=== PATIENT | female | born 1980 | race Caucasian/White ===

== ENCOUNTER 2018-06-03 15:41 | Inpatient (IN) | payer OTHER ==
[~2018-06-03 15:41] MED LIST: Bupivacaine/Epinephrine 0.25% 30 ML VIAL ONE
[2018-06-03] MEDS ORDERED: NS / Oxytocin 40 units/1000ml 1,000 ML IV PRN (18:04)
[2018-06-03] MEDS ORDERED: Zolpidem Tartrate 5 MG TAB PO PRN (18:04)
[2018-06-03] MEDS ORDERED: Butorphanol Tartrate 1 MG/ML VIAL SLOW IVP PRN (18:04)
[2018-06-03] MEDS ORDERED: Lidocaine 1% (PF) 30 ML VIAL SC PRN (18:04)
[2018-06-03] MEDS ORDERED: Carboprost 250 MCG/ML AMP IM PRN (18:04)
[2018-06-03] MEDS ORDERED: Misoprostol 200 MCG TAB PR PRN (18:04)
[2018-06-03] MEDS ORDERED: HYDROcodone/Acetaminophen 5/325 mg Tablet PO PRN ×2 (18:04)
[2018-06-03] MEDS ORDERED: Promethazine HCl 25 MG/ML VIAL IM PRN (18:04)
[2018-06-03] MEDS ORDERED: Acetaminophen 500 MG TAB PO PRN (18:04)
[2018-06-03] MEDS ORDERED: Diphenoxylate HCl/Atropine Tablet PO PRN (18:04)
[2018-06-03 18:11] VITALS: BMI 38.0
[2018-06-03] MEDS ORDERED: Penicillin G Potassium 5 MILL.UNITS in Sodium Chloride 0.9% 100 ML IVPB SCH (18:15)
[2018-06-03] MEDS ORDERED: [UNRECOGNIZED DRUG - OTHER] VAG SCH (18:15)
--- NOTE | 2018-06-03 18:16 | PDOC.LDHP ---
Labor and Delivery H&P Chief complaint: other (BPP 4/8 and oligo in office on BPP today) HPI: 38yo at 37w3d by LMP sent over for IOL due to oligo and BPP 4/8. Pt endorses +fm. Hx CHTN no meds currently prev on losartan, no sx PIH. Current gestational age (weeks): 37 Due date: 06/21/18 Dating criteria: second trimester ultrasound Grav: 1 Para: 0 Current complications: none Abnormal US findings: No Past Medical History: CHTN Current medications: pre- vitamins, iron, other (asa 81mg) Previous surgical history: none Allergies/Adverse Reactions: Allergies Allergy/AdvReac Type Severity Reaction Status Date / Time celecoxib [From Celebrex] Allergy Verified 06/03/18 18:03 Social history: none - Physical Exam Vital signs reviewed and normal: yes General: NAD Heart: RRR Lungs: CTAB Abdomen: gravid Extremeties: no edema FHT: category 1 [place] contractions every: quiet - Vaginal Exam cm dilated: 0 Effacement: 25% Station: -2 - OB Labs Blood type: A RH: positive Antibody Screen: negative HIV: negative RPR: negative HEPSAg: negative 1 hour GCT: negative GBS: positive Urine drug screen: not done Rubella: immune - Assessment L&D Assessment: medically indicated induction - Plan Plan: admit to L&D, cervical ripening, labor augmentation if indicated, GBS antibiotic prophylaxis, informed consent obtained, anesthesia consult for pain management
[2018-06-03] MEDS ORDERED: Dinoprostone 10 MG Suppository VAG SCH (18:30)
[2018-06-03 19:02] LABS: Hemoglobin 11.9 g/dL (12.0-16.0); Mean Corpuscular HGB CONC 34.9 g/dL (32.0-36.0); Mean Corpuscular Hemoglobin 31.5 pg (27.0-31.0); Mean Corpuscular Volume 90.3 fL (78.0-98.0); Mean Platelet Volume 7.9 fL (7.4-10.4); Platelet Count 214 thou/uL (130-400); RBC Distribution Width 13.2 % (11.5-14.5); Red Blood Cell (RBC) Count 3.78 mill/uL (4.20-5.40); White Blood Cell (WBC) Count 11.1 thou/uL (4.8-10.8)
[2018-06-03 19:27] LABS: ALT (SGPT) Less than 7 U/L (8-55); AST (SGOT) 10 U/L (5-34); Albumin 3.1 g/dL (3.5-5.0); Alkaline Phosphatase 107 U/L (40-150); Anion Gap 15 mmol/L (10-20); BUN (Urea Nitrogen) 9 mg/dL (7.0-18.7); Bilirubin, Total Less than 0.2 mg/dL (0.2-1.2); Calc. Creatinine Clearance 160 mL/min (70-130); Calcium 8.8 mg/dL (7.8-10.44); Carbon Dioxide 17 mmol/L (22-29); Chloride 108 mmol/L (98-107); Estimated GFR-MDRD Greater than 90; Globulin 3.1 g/dL (2.4-3.5); Glucose 119 mg/dL (70-105); Potassium 3.5 mmol/L (3.5-5.1); Protein, Total 6.2 g/dL (6.0-8.3); Sodium 136 mmol/L (136-145)
[2018-06-03 19:50] LABS: HBSAg Index 0.17 S/CO (0-0.99); Hep B Surf Ag Non-Reactive S/CO (NonReactive); Syphilis Antibody Nonreactive (Nonreactive); Syphilis Antibody Index 0.03 S/CO (<1.00 Non-Reactive)
--- NOTE | 2018-06-04 06:52 | PDOC.LDPN ---
Labor & Delivery Progress Note - Subjective Subjective: comfortable - Objective Vital signs reviewed and normal: yes General: NAD Uterine fundus: non tender Dilation: 1 Effacement: 50% Station: -2 FHT: category 1 [place] contractions every: 5-8min Plan: pitocin for augmentation, other (start PCN) -: AROM next check if ready. FHT reassuring. BP wnl, labs wnl, no sx PIH
[2018-06-04] MEDS: NS w/ Oxytocin 10 units 500 ML IV SCH (07:13)
[2018-06-04] MEDS: Lactated Ringer's 1,000 ML IV SCH ×3 (08:06→22:15)
[2018-06-04] MEDS: Penicillin G 2.5 MILL.units 2.5 MILL.UNITS in Premix Bag 1 BAG IVPB SCH ×5 (08:06→23:31)
[2018-06-04] MEDS ORDERED: DISCONTINUE ALL PREVIOUS NARCOTICS FS SCH (11:00)
[2018-06-04] MEDS ORDERED: Bupivacaine 0.75% 13.4 ML, fentaNYL Citrate/PF 400 MCG in Sodium Chloride 0.9% 78.6 ML EPIDURAL SCH (11:00)
[2018-06-04] MEDS: Ondansetron HCl/PF 4 MG/2 ML Vial IVP PRN (11:21)
[2018-06-04] MEDS ORDERED: Famotidine/PF 20 mg/2ml Vial SLOW IVP PRN (13:39)
--- NOTE | 2018-06-04 14:25 | PDOC.LDPN ---
Labor & Delivery Progress Note - Subjective Subjective: comfortable, vaginal pressure - Objective Vital signs reviewed and normal: yes General: NAD Uterine fundus: non tender Dilation: 1 Effacement: 50% Station: -2 FHT: category 1 [place] contractions every: 4min Other exam findings: Cook balloon placed at 1015 (late entry) -: SVE unchanged after 3 hr of cook balloon, cont cook balloon, turn pitocin down to 6mu/min for ripening effect, if not more dilated in 2-3hr will switch to cytotec for ripening. FHT reassuring, on PCN for GBS pos.
[2018-06-04] MEDS: Misoprostol 100 MCG TAB PO SCH ×3 (16:31→22:29)
--- NOTE | 2018-06-04 20:31 | PDOC.LDPN ---
Labor & Delivery Progress Note - Subjective Subjective: comfortable, vaginal pressure - Objective Vital signs reviewed and normal: yes General: NAD Uterine fundus: non tender Dilation: 1 Effacement: 50% Station: -2 FHT: category 1 [place] contractions every: 3min, balloon in place -: Cook balloon in, has not responded to cervidil, low dose pitocin, cook balloon in, 12 hr up at 2230, s/p cytotec po x 1, will cont x 3 doses, remove cook balloon at 12h, then start pitocin f/b arom. if no cervical change following this will be for PCS for failed IOL. FHT reassuring
[2018-06-05] MEDS: Penicillin G 2.5 MILL.units 2.5 MILL.UNITS in Premix Bag 1 BAG IVPB SCH ×4 (03:12→22:09)
[2018-06-05] MEDS: Misoprostol 100 MCG TAB PO SCH ×2 (04:28→07:17)
[2018-06-05] MEDS: Lactated Ringer's 1,000 ML IV SCH ×3 (05:55→17:25)
--- NOTE | 2018-06-05 08:33 | PDOC.LDPN ---
Labor & Delivery Progress Note - Subjective Subjective: comfortable - Objective Vital signs reviewed and normal: yes General: NAD Uterine fundus: non tender Dilation: 1 Effacement: 50% Station: -2 FHT: category 1 [place] contractions every: 5-8min -: Day 2 of IOL, cytotec multiple doses has not worked to dilate and soften external os. Disc with pt and option of therapeutic rest vs CS. Will rest for good part of the day and restart cytotec ripening at 5pm. Can hold all meds until then, Monitoring q 6h. Pt agrees and is willing to proceed. Declines CS at this time. status reassuring.
[2018-06-05] MEDS: Misoprostol 100 MCG TAB VAG SCH ×3 (17:15→23:21)
[2018-06-05] MEDS ORDERED: Penicillin G Potassium 5 MILL.UNITS VIAL ONE ×2 (17:53→17:54)
[2018-06-05] MEDS ORDERED: Penicillin G Potassium 5 MILL.UNITS in Sodium Chloride 0.9% 100 ML IVPB SCH (18:15)
[2018-06-05] MEDS ORDERED: Misoprostol 100 MCG TAB PO SCH (20:45)
[2018-06-05] MEDS ORDERED: Magnesium Sulfate 20 gm/500 ml 0 GM/0 ML BAG ONE (22:34)
[2018-06-06] MEDS: Penicillin G 2.5 MILL.units 2.5 MILL.UNITS in Premix Bag 1 BAG IVPB SCH ×5 (02:24→18:30)
[2018-06-06] MEDS: Lactated Ringer's 1,000 ML IV SCH ×3 (02:31→13:27)
[2018-06-06] MEDS: Misoprostol 100 MCG TAB VAG SCH ×7 (02:36→18:31)
--- NOTE | 2018-06-06 11:56 | PDOC.LDPN ---
Labor & Delivery Progress Note - Subjective Subjective: comfortable - Objective Vital signs reviewed and normal: yes General: NAD Uterine fundus: non tender Dilation: 1.5 Effacement: 75% Station: -2 FHT: category 1 [place] contractions every: 3-5min AROM: clear fluid Plan: pitocin for augmentation, other (cont GBS ppx with PCN, FHT reassuring)
[2018-06-06] MEDS ORDERED: Bupivacaine PF 0.5% 20 ML, fentaNYL Citrate/PF 400 MCG in Sodium Chloride 0.9% 72 ML FS SCH (12:00)
[2018-06-06] MEDS: NS w/ Oxytocin 10 units 500 ML IV SCH (12:20)
[2018-06-06] MEDS ORDERED: Ondansetron HCl/PF 4 MG/2 ML Vial IVP PRN ×2 (13:23→22:31)
[2018-06-06] MEDS ORDERED: Eucerin (Mineral Oil/Petrolatum,White) 30 gm Jar TOP PRN (13:23)
[2018-06-06] MEDS ORDERED: Lactated Ringer's 500 ML IV PRN (13:23)
[2018-06-06] MEDS ORDERED: ePHEDrine/0.9% NaCl/PF SYRINGE 50 mg/10 ml SLOW IVP PRN (13:23)
[2018-06-06] MEDS ORDERED: diphenhydrAMINE 50 MG/ML VIAL IVP PRN (13:23)
[2018-06-06] MEDS ORDERED: Naloxone HCl 0.4 mg/ml Vial IVP PRN ×2 (13:23)
[2018-06-06] MEDS ORDERED: Promethazine HCl 25 MG/ML VIAL IM PRN (13:23)
[2018-06-06] MEDS ORDERED: Acetaminophen 325 MG TAB PO PRN (13:23)
[2018-06-06] MEDS ORDERED: fentaNYL Citrate/PF 400 MCG, Bupivacaine 0.5% 20 ML in Sodium Chloride 0.9% 72 ML EPIDURAL SCH (13:30)
[2018-06-06] MEDS ORDERED: Communication Order-Pharmacy FS SCH (13:30)
[2018-06-06] MEDS: Ondansetron HCl/PF 4 MG/2 ML Vial IVP PRN (15:09)
--- NOTE | 2018-06-06 19:40 | PDOC.OPDEL ---
OB Operative/Delivery Note Delivery Dr/Surgeon: Dari Assist: n/a Pre-Delivery Diagnosis: medically indicated induction Procedure/Post Delivery Dx: spontaneous vaginal delivery Weeks gestation: 37 Anesthesia: epidural - Findings A Sex: female - 1 min: 8 - 5 min: 9 - Additional Findings/Plan Placenta delivered: spontaneous Repaired Obstetrical Laceration: 1st degree (repaired with 2-0 vicryl for hemostasis) Estimated blood loss: 100- final pending Post delivery plan: routine recovery
[2018-06-06] MEDS ORDERED: Lanolin Ointment 7 GM TUBE TOP PRN (22:31)
[2018-06-06] MEDS ORDERED: HYDROcodone/Acetaminophen 5/325 mg Tablet PO PRN ×2 (22:31)
[2018-06-06] MEDS ORDERED: Bisacodyl 10 MG SUPP PR PRN (22:31)
[2018-06-06] MEDS ORDERED: Preparation H Ointment 28 GM TUBE PR PRN (22:31)
[2018-06-06] MEDS ORDERED: diphenhydrAMINE 25 MG CAP PO PRN (22:31)
[2018-06-06] MEDS ORDERED: Benzocaine/Menthol 20-0.5% 60 ML CAN TOP PRN (22:31)
[2018-06-06] MEDS ORDERED: NS / Oxytocin 40 units/1000ml 1,000 ML IV SCH (22:31)
[2018-06-06] MEDS ORDERED: Milk Of Magnesia 30 ML UDCUP PO PRN (22:31)
[2018-06-06] MEDS ORDERED: Docusate Calcium (SURFAK) 240 MG CAP PO SCH (23:00)
[2018-06-06] MEDS ORDERED: Ibuprofen 800 MG TAB PO SCH (23:00)
[2018-06-07] MEDS: Penicillin G 2.5 MILL.units 2.5 MILL.UNITS in Premix Bag 1 BAG IVPB SCH ×2 (00:37→07:55)
[2018-06-07] MEDS: Lactated Ringer's 1,000 ML IV SCH (00:37)
[2018-06-07] MEDS: Misoprostol 100 MCG TAB VAG SCH (00:37)
[2018-06-07] MEDS ORDERED: Ibuprofen 800 MG TAB PO SCH (06:00)
[2018-06-07] MEDS ORDERED: Adacel (T-DAP) 0.5 ML VIAL IM ONE (09:00)
[2018-06-07] MEDS: Ferrous Sulfate 325 MG TAB PO SCH ×2 (09:34→16:19)
[2018-06-07] MEDS: Prenatal Vitamin 1 TAB PO SCH (09:36)
[2018-06-07] MEDS: Docusate Calcium (SURFAK) 240 MG CAP PO SCH ×2 (09:36→21:20)
--- NOTE | 2018-06-07 12:35 | PDOC.PP ---
Post Progress Note Post Day #: 1 PO intake tolerated: yes Flatus: yes Ambulation: yes Vital Signs (12 hours) Temp Pulse Resp BP 06/07/18 12:20 97.8 F 63 20 06/07/18 08:15 97.8 F 63 20 06/07/18 08:00 97.8 F 63 20 120/70 06/07/18 03:55 97.6 F 57 L 16 119/77 Weight Weight 208 lb - Physical Examination General: NAD Cardiovascular: RRR Respiratory: non-labored breathing Abdominal: no distention, appropriately TTP Fundus firm & at: umb-2 Neurological: no gross focal deficits Psychiatric: normal affect Result Diagrams: 06/03/18 18:53 06/03/18 18:53 Additional Labs: Post Labs Blood Type A POSITIVE 06/03/18 18:53 Hep Bs Antigen Non-Reactive S/CO (NonReactive) 06/03/18 18:53 - Assessment/Plan PPD1 s/p TSVD VSSAF Doing well no issues Rh pos RImm Cont care
--- NOTE | 2018-06-08 07:39 | PDOC.PP ---
Post Progress Note Post Day #: 2 PO intake tolerated: yes Flatus: yes Ambulation: yes Vital Signs (12 hours) Temp Pulse Resp BP 06/07/18 21:20 98.1 F 54 L 16 134/74 Weight Weight 208 lb - Physical Examination General: NAD Cardiovascular: RRR Respiratory: non-labored breathing Abdominal: no distention, appropriately TTP Fundus firm & at: umb Skin: no rash Neurological: no gross focal deficits Psychiatric: normal affect Result Diagrams: 06/03/18 18:53 06/03/18 18:53 Additional Labs: Post Labs Blood Type A POSITIVE 06/03/18 18:53 Hep Bs Antigen Non-Reactive S/CO (NonReactive) 06/03/18 18:53
[2018-06-08] MEDS: Ferrous Sulfate 325 MG TAB PO SCH ×2 (08:16→15:18)
[2018-06-08] MEDS: Prenatal Vitamin 1 TAB PO SCH (08:17)
[2018-06-08] MEDS: Docusate Calcium (SURFAK) 240 MG CAP PO SCH (08:17)
[2018-06-08 08:52] VITALS: BP 146/81; TEMP 98
== END 2018-06-08 16:10 | disposition home or self-care (01) | DRG 774 ==
LOC: L&D 15:41 → 3SW 06-06 22:01
PROVIDERS: ADMIT Student in an Organized Health Care Education/Training Program; ATTEND Student in an Organized Health Care Education/Training Program
PROC: 10E0XZZ Delivery of Products of Conception, External Approach (ICD-10-PCS; principal; 2018-06-06)
PROC: 10907ZC Drainage of Amniotic Fluid, Therapeutic from Products of Conception, Via Natural or Artificial Opening (ICD-10-PCS; 2018-06-06)
PROC: 0HQ9XZZ Repair Perineum Skin, External Approach (ICD-10-PCS; 2018-06-06)
PROC: 3E0P7VZ Introduction of Hormone into Female Reproductive, Via Natural or Artificial Opening (ICD-10-PCS; 2018-06-06)
PROC: 0U7C7ZZ Dilation of Cervix, Via Natural or Artificial Opening (ICD-10-PCS; 2018-06-06)
DX: O41.03X0 Oligohydramnios, third trimester, not applicable or unspecified (principal); O10.92 Unspecified pre-existing hypertension complicating childbirth; O70.0 First degree perineal laceration during delivery; O99.824 Streptococcus B carrier state complicating childbirth; Z3A.37 37 weeks gestation of pregnancy; Z37.0 Single live birth
CPT/HCPCS: 36415; 51702; 80053; 85027; 86780; 86850; 86900; 86901; 87340; 88307; C1726; J0595; J2001; J2405; J2540; J3010; J3475; J7050; S0020; S0028

== ENCOUNTER 2019-12-08 23:21 | Inpatient (IN) | payer OTHER ==
[~2019-12-08 23:21] MED LIST changes: +Bupivacaine 0.25% HCL 30 ML VIAL ONE; -Bupivacaine/Epinephrine 0.25% 30 ML VIAL ONE
[2019-12-08] MEDS ORDERED: Diphenoxylate HCl/Atropine Tablet PO PRN (23:37)
[2019-12-08] MEDS ORDERED: Carboprost 250 MCG/ML AMP IM PRN (23:37)
[2019-12-08] MEDS ORDERED: hydrALAZINE 20 MG/ML VIAL SLOW IVP PRN (23:37)
[2019-12-08] MEDS ORDERED: Lidocaine 1% (PF) 30 ML VIAL SC PRN (23:37)
[2019-12-08] MEDS ORDERED: HYDROcodone/Acetaminophen 5/325 mg Tablet PO PRN (23:37)
[2019-12-08] MEDS ORDERED: Misoprostol 200 MCG TAB PR PRN (23:37)
[2019-12-08] MEDS ORDERED: Promethazine HCl 25 MG/ML VIAL IM PRN (23:37)
[2019-12-08] MEDS ORDERED: Ondansetron PF 4 MG/2 ML Vial IVP PRN (23:37)
[2019-12-08] MEDS ORDERED: Methylergonovine 0.2 MG/ML VIAL IM PRN (23:37)
[2019-12-09] MEDS: Lactated Ringer's 1,000 ML IV SCH ×3 (00:27→16:22)
[2019-12-09 00:45] LABS: Hemoglobin 11.3 g/dL (12.0-16.0); Mean Corpuscular HGB CONC 35.6 g/dL (32.0-36.0); Mean Corpuscular Volume 89.8 fL (78.0-98.0); Mean Platelet Volume 8.6 fL (7.4-10.4); Platelet Count 190 thou/uL (130-400); RBC Distribution Width 12.9 % (11.5-14.5); Red Blood Cell (RBC) Count 3.52 mill/uL (4.20-5.40); White Blood Cell (WBC) Count 10.8 thou/uL (4.8-10.8)
[2019-12-09] MEDS: Misoprostol 100 MCG TAB VAG SCH ×2 (00:49→04:11)
[2019-12-09 00:54] VITALS: BMI 39.6
[2019-12-09 01:24] LABS: HBSAg Index 0.22 S/CO (0-0.99); Hep B Surf Ag Non-Reactive S/CO (NonReactive)
[2019-12-09 04:23] LABS: Syphilis Antibody Nonreactive (Nonreactive); Syphilis Antibody Index 0.03 S/CO (<1.00 Non-Reactive)
--- NOTE | 2019-12-09 07:32 | PDOC.LDHP ---
Labor and Delivery H&P Chief complaint: scheduled induction HPI: 39yo at 39w1d by LMP here for IOL due to CHTN, not on medications. s/p cytotec x 2 overnight. Current gestational age (weeks): 39 Due date: 12/15/19 Dating criteria: last menstrual period Grav: 2 Para: 1 Current complications: none Abnormal US findings: No Past Medical History: CHTN Current medications: pre- vitamins Previous surgical history: none Allergies/Adverse Reactions: Allergies Allergy/AdvReac Type Severity Reaction Status Date / Time NSAIDS (Non-Steroidal Allergy Mild Nausea Verified 12/09/19 00:44 Anti-Inflamma celecoxib [From Celebrex] Allergy Verified 12/09/19 00:44 Social history: none - Physical Exam Vital signs reviewed and normal: yes General: NAD Heart: RRR Lungs: CTAB Abdomen: gravid Extremeties: no edema FHT: category 1 [place] contractions every: 8min - Vaginal Exam cm dilated: 2 Effacement: 25% Station: -3 (cook balloon placed 60/60) - OB Labs RH: positive Antibody Screen: negative HIV: negative RPR: negative HEPSAg: negative 1 hour GCT: negative GBS: negative Urine drug screen: negative Rubella: immune - Assessment L&D Assessment: medically indicated induction - Plan Plan: admit to L&D, cervical ripening, labor augmentation if indicated, informed consent obtained, anesthesia consult for pain management -: Cook balloon placed, will do po cytotec with balloon for further ripening.
[2019-12-09] MEDS ORDERED: Misoprostol 100 MCG TAB PO SCH (07:45)
[2019-12-09] MEDS ORDERED: Misoprostol 100 MCG TAB ONE (07:55)
[2019-12-09] MEDS: Butorphanol Tartrate 1 MG/ML VIAL SLOW IVP PRN ×2 (10:08→16:33)
[2019-12-09] MEDS: Misoprostol 100 MCG TAB PO SCH (12:17)
--- NOTE | 2019-12-09 14:49 | PDOC.LDPN ---
Labor & Delivery Progress Note - Subjective Subjective: vaginal pressure - Objective Vital signs reviewed and normal: yes General: NAD Uterine fundus: non tender Dilation: 4 Effacement: 50% Station: -3 FHT: category 1 [place] contractions every: 3min -: cont balloon x 2 more hours then remove and start pit
[2019-12-09] MEDS: NS w/ Oxytocin 10 units 500 ML IV SCH (16:23)
[2019-12-09] MEDS ORDERED: Fentanyl 4 mcg/Bup 0.1% Cadd 100 ML ONE (17:12)
--- NOTE | 2019-12-09 17:17 | PDOC.LDPN ---
Labor & Delivery Progress Note - Subjective Subjective: painful contractions - Objective Vital signs reviewed and normal: yes General: NAD Uterine fundus: non tender Dilation: 6 Effacement: 75% Station: -2 FHT: category 1 [place] contractions every: 3min AROM: clear fluid Plan: labor augmentation
[2019-12-09] MEDS ORDERED: ePHEDrine/0.9% NaCl/PF SYRINGE 50 mg/10 ml SLOW IVP PRN (19:19)
[2019-12-09] MEDS ORDERED: Lactated Ringer's 500 ML IV PRN (19:19)
[2019-12-09] MEDS ORDERED: Acetaminophen 325 MG TAB PO PRN (19:19)
[2019-12-09] MEDS ORDERED: Naloxone HCl 0.4 mg/ml Vial IVP PRN ×2 (19:19)
[2019-12-09] MEDS ORDERED: diphenhydrAMINE 50 MG/ML VIAL IVP PRN (19:19)
[2019-12-09] MEDS ORDERED: Promethazine HCl 25 MG/ML VIAL IM PRN (19:19)
[2019-12-09] MEDS ORDERED: Ondansetron PF 4 MG/2 ML Vial IVP PRN (19:19)
[2019-12-09] MEDS ORDERED: Fentanyl 4 mcg/Bupivacaine 0.1% Cassette 100 ML EPIDURAL SCH (19:30)
[2019-12-09] MEDS ORDERED: Communication Order-Pharmacy FS SCH (19:30)
[2019-12-10] MEDS ORDERED: Fentanyl 4 mcg/Bup 0.1% Cadd 100 ML ONE (00:05)
[2019-12-10] MEDS ORDERED: Carboprost 250 MCG/ML AMP ONE (00:46)
[2019-12-10] MEDS ORDERED: Misoprostol 200 MCG TAB ONE (00:46)
[2019-12-10] MEDS: NS / Oxytocin 40 units/1000ml 1,000 ML IV PRN ×2 (00:47→03:14)
--- NOTE | 2019-12-10 00:55 | PDOC.OPDEL ---
OB Operative/Delivery Note Delivery Dr/Surgeon: Dari Assist: n/a Pre-Delivery Diagnosis: medically indicated induction Procedure/Post Delivery Dx: spontaneous vaginal delivery Weeks gestation: 39 Anesthesia: epidural - Findings A Sex: male - 1 min: 8 - 5 min: 9 - Additional Findings/Plan Placenta delivered: spontaneous Repaired Obstetrical Laceration: 1st degree Estimated blood loss: 425 Compilations/Other Findings: NC x 1 tight delivered through Post delivery plan: routine recovery
[2019-12-10] MEDS ORDERED: Milk Of Magnesia 30 ML UDCUP PO PRN (04:01)
[2019-12-10] MEDS ORDERED: hydrALAZINE 20 MG/ML VIAL SLOW IVP PRN (04:01)
[2019-12-10] MEDS ORDERED: Bisacodyl 10 MG SUPP PR PRN (04:01)
[2019-12-10] MEDS ORDERED: HYDROcodone/Acetaminophen 5/325 mg Tablet PO PRN ×2 (04:01)
[2019-12-10] MEDS ORDERED: Misoprostol 200 MCG TAB VAG PRN (04:01)
[2019-12-10] MEDS ORDERED: Zolpidem Tartrate 5 MG TAB PO PRN (04:01)
[2019-12-10] MEDS: NS w/ Oxytocin 10 units 500 ML IV SCH ×2 (05:01→22:24)
[2019-12-10] MEDS: Misoprostol 100 MCG TAB PO SCH ×2 (05:03→05:04)
[2019-12-10] MEDS: Lactated Ringer's 1,000 ML IV SCH (05:04)
[2019-12-10] MEDS: Acetaminophen 500 MG TAB PO PRN ×3 (06:06→21:29)
[2019-12-10] MEDS ORDERED: Adacel (T-DAP) 0.5 ML SYRINGE IM ONE (09:00)
[2019-12-10] MEDS: Ferrous Sulfate 325 MG TAB PO SCH ×2 (09:27→17:14)
[2019-12-10] MEDS: Docusate Calcium (SURFAK) 240 MG CAP PO SCH ×2 (09:28→21:29)
[2019-12-10] MEDS: Prenatal Vitamin 1 TAB PO SCH (09:28)
[2019-12-11] MEDS ORDERED: Ibuprofen 200 MG TAB PO PRN (06:33)
--- NOTE | 2019-12-11 06:36 | PDOC.PP ---
Post Progress Note Post Day #: 1 Subjective: Patient doing well. No significant overnight events. She desires to breastfeed. Lochia less than period. No concerns. Endorses abdominal cramping, worse with . Discussed pain control options. Patient desires ibuprofen. Discusses reaction listed in "allergies". Patient states able to take, just not at at high dose. PO intake tolerated: yes Flatus: yes Ambulation: yes Vital Signs (12 hours) Temp Pulse Resp BP Pulse Ox 12/11/19 01:33 69 131/60 12/10/19 21:00 98.1 F 80 16 142/67 H 100 Weight Weight 98.43 kg - Physical Examination General: NAD Cardiovascular: RRR Respiratory: non-labored breathing Abdominal: + bowel sounds, lochia (minimal), no distention, appropriately TTP Fundus firm & at: below umbilicus Skin: no rash Neurological: no gross focal deficits Psychiatric: A&Ox3, normal affect Result Diagrams: 12/09/19 00:37 Additional Labs: Post Labs Blood Type A POSITIVE 12/09/19 00:37 Hep Bs Antigen Non-Reactive S/CO (NonReactive) 12/09/19 00:37 - Assessment/Plan Routine PP care - Meeting PP milestones - Lochia minimal - BP high 142/67; continue to monitor, only one elevated BP - Desires - Rh positive, rubella immune - Will start ibuprofen for additional pain control after discussion with patient cHTN - BP high to 142/67; continue to monitor Dispo: Stable. Anticipate d/c home tomorrow.
[2019-12-11] MEDS: Acetaminophen 500 MG TAB PO PRN (07:12)
[2019-12-11] MEDS: Ferrous Sulfate 325 MG TAB PO SCH (09:21)
[2019-12-11] MEDS: Prenatal Vitamin 1 TAB PO SCH (09:22)
[2019-12-11] MEDS: Docusate Calcium (SURFAK) 240 MG CAP PO SCH (09:22)
[2019-12-11 11:56] VITALS: BP 142/76; TEMP 98.2
== END 2019-12-11 13:15 | disposition home or self-care (01) | DRG 807 ==
LOC: L&D 23:21 → 3SW 12-10 04:44 → EDSTATUS 12-15 16:47
PROVIDERS: ADMIT Student in an Organized Health Care Education/Training Program; ATTEND Student in an Organized Health Care Education/Training Program
PROC: 10E0XZZ Delivery of Products of Conception, External Approach (ICD-10-PCS; principal; 2019-12-09)
PROC: 10907ZC Drainage of Amniotic Fluid, Therapeutic from Products of Conception, Via Natural or Artificial Opening (ICD-10-PCS; 2019-12-09)
PROC: 0HQ9XZZ Repair Perineum Skin, External Approach (ICD-10-PCS; 2019-12-09)
PROC: 3E033VJ Introduction of Other Hormone into Peripheral Vein, Percutaneous Approach (ICD-10-PCS; 2019-12-09)
PROC: 3E0P7VZ Introduction of Hormone into Female Reproductive, Via Natural or Artificial Opening (ICD-10-PCS; 2019-12-09)
PROC: 0U7C7ZZ Dilation of Cervix, Via Natural or Artificial Opening (ICD-10-PCS; 2019-12-09)
DX: O10.92 Unspecified pre-existing hypertension complicating childbirth (principal); Z37.0 Single live birth; O69.1XX0 Labor and delivery complicated by cord around neck, with compression, not applicable or unspecified; O70.0 First degree perineal laceration during delivery; Z3A.39 39 weeks gestation of pregnancy; Z88.6 Allergy status to analgesic agent
CPT/HCPCS: 36415; 51702; 85027; 86780; 86850; 86900; 86901; 87340; J0595; J2405; J2590; J3490; S0020